=== PATIENT | male | born 1955 | race Caucasian/White ===

== ENCOUNTER → 2024-07-06 09:26 | Outpatient (REF) | payer MEDICARE, SELFPAY | LOC: HWRAD 09:26 | PROVIDERS: ATTENDING PHYSICIAN Nurse Practitioner Adult Health; FAMILY PHYSICIAN Student in an Organized Health Care Education/Training Program | DX: R74.8 Abnormal levels of other serum enzymes (principal); R91.1 Solitary pulmonary nodule | CPT/HCPCS: 71250; 76700 ==